=== PATIENT | male | born 1980 | race African-American/Black ===

== ENCOUNTER → 2017-07-14 | Day surgery (SDC) | payer OTHER ==
[~2017-07-14] MED LIST: ATROPINE SULFATE 1% OPHT SOLN 5 ML BTL ONE; DEXAMETHASONE SOD PHOS 4 MG/ML VIAL ONE; EPINEPHrine HCL (1:1000) 1 MG/ML VIAL ONE; FLURBIPROFEN 0.03% OPHT SOLN 2.5 ML BTL ONE; HYALURONIDASE/LIDOCAINE/BUPIVACAINE 5 ML SYR ONE; LABETALOL HCL 100 MG/20 ML VIAL ONE; LACTATED RINGER'S 1000 ML INJ 1,000 ML ONE; MIDAZOLAM HCL 2 MG/2 ML VIAL ONE; NEOMYCIN/POLYMYXIN/DEXAMETHASONE OPTH OINT 3.5 GM TUBE ONE; PHENYLEPHRINE HCL 2.5 % OPTH SOLN 15 ML BTL ONE; PROPOFOL 200 MG/20 ML AMP IV ONE; SODIUM CHLORIDE 0.9% INJ 10 ML ONE; TETRACAINE 0.5% OPTH SOLN 15 ML BTL ONE; TROPICAMIDE 1% OPHT SOLN 15 ML BTL ONE; ceFAZolin INJ 1,000 MG VIAL ONE
== END | disposition home or self-care (01) ==
LOC: ESDC 13:09
PROVIDERS: ATTEND Ophthalmology Retina Specialist
DX: H43.12 Vitreous hemorrhage, left eye (principal)
CPT/HCPCS: 00145; 67043; J0171; J0690; J1100; J2250; J3010; J7120

== ENCOUNTER 2017-09-20 18:22 | Emergency (ER) | payer OTHER ==
[~2017-09-20] VITALS: Ht 180.3 cm; Wt 120.6 kg
[2017-09-20 18:30] VITALS: BP 200/117; PULSE 96; RESP 18; TEMP 98.3; O2SAT 99
[2017-09-20] MEDS ORDERED: ACETAMINOPHEN/HYDROcodone 325 MG/5 MG TAB PO ONE (20:30)
[2017-09-20] MEDS ORDERED: IBUPROFEN 600 MG TAB PO ONE (20:30)
[2017-09-20] MEDS ORDERED: cloNIDine HCL 0.1 MG TAB PO ONE (20:30)
[2017-09-20 20:38] VITALS: BP 181/108
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
[2017-09-20] MEDS ORDERED: DICL75TA PO (22:14)
[2017-09-20] MEDS ORDERED: ROBA500T PO (22:14)
[2017-09-20] MEDS ORDERED: METO-309 PO (22:15)
[2017-09-20 22:20] VITALS: BP 162/103
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
[2017-09-20] MEDS ORDERED: METO50TA PO (22:28)
== END 2017-09-20 22:30 | disposition home or self-care (01) ==
LOC: PHEFT 18:22
DX: S13.4XXA Sprain of ligaments of cervical spine, initial encounter (principal); S09.90XA Unspecified injury of head, initial encounter; I10 Essential (primary) hypertension; V43.52XA Car driver injured in collision with other type car in traffic accident, initial encounter; Z79.899 Other long term (current) drug therapy
CPT/HCPCS: 70450; 71045; 72072; 72110; 72125; 99284